=== PATIENT | female | born 1950 | race Caucasian/White ===

== ENCOUNTER 2017-01-19 14:53 | Emergency (ER) | payer OTHER ==
[~2017-01-19] VITALS: Ht 162.6 cm; Wt 63.0 kg
[2017-01-19] MEDS ORDERED: FLEXERIL5 MG PO (19:13)
[2017-01-19] MEDS ORDERED: NAPROSYN500 MG PO (19:13)
[2017-01-19] MEDS ORDERED: NORCO 5/3251 TABLET PO (19:13)
[2017-01-19 19:22] VITALS: BP 130/65
== END 2017-01-19 19:22 | disposition home or self-care (01) ==
LOC: EME 14:53
DX: M54.42 Lumbago with sciatica, left side (principal); M25.562 Pain in left knee
CPT/HCPCS: 99281; 99284; J1885; J2930; J3010